=== PATIENT | male | born 1960 | race Asian ===

== ENCOUNTER 2025-02-26 17:19 | Emergency (ER) | payer BC ==
[2025-02-26 17:36] VITALS: BP 146/81; PULSE 116; RESP 20; TEMP 99.9; BMI 21.9
[2025-02-26] MEDS ORDERED: guaiFENesin/D-METHORPHAN HB 10 ML UNIT-DOSE CUPS ONE (18:57)
[2025-02-26] MEDS ORDERED: ACETAMINOPHEN 500 MG TABLET (FP) ONE (18:58)
[2025-02-26] MEDS: ACETAMINOPHEN 500 MG TABLET (FP) PO ONE (19:02)
[2025-02-26] MEDS: guaiFENesin 200 MG/10 ML 10 ML UNIT-DOSE CUPS PO ONE (19:02)
[2025-02-26 19:21] LABS: THROAT:GRP A STREP NOT DETECTED (NOTDETECTED)
== END 2025-02-26 20:10 | disposition home or self-care (01) ==
LOC: JERFT 17:19
DX: R05.9 Cough, unspecified (principal); R50.9 Fever, unspecified; R00.0 Tachycardia, unspecified; J34.3 Hypertrophy of nasal turbinates; B34.9 Viral infection, unspecified
CPT/HCPCS: 71046-TC-FY; 87637-QW; 87651; 99284-25